=== PATIENT | male | born 1990 ===

== ENCOUNTER 2022-06-05 08:00 | Outpatient (CLI) | payer OTHER ==
[2022-06-07 03:09] LABS: HCV AB 0.1 s/co ratio (0.0-0.9)
[2022-06-07 10:09] LABS: HIV SCREEN 4TH GENERATION Non Reactive (Non Reactive)
== END 2022-06-05 23:59 | disposition home or self-care (01) ==
LOC: LAB.N 08:00
PROVIDERS: ATTEND Family Medicine
DX: S71.131A Puncture wound without foreign body, right thigh, initial encounter (principal); W46.1XXA Contact with contaminated hypodermic needle, initial encounter
CPT/HCPCS: 36415; 86704; 86803; 87389